=== PATIENT | male | born 1990 | race Caucasian/White ===

== ENCOUNTER 2021-04-06 22:14 | Emergency (ER) | payer BC, SELFPAY ==
[2021-04-06 22:14] VITALS: BP 116/88; PULSE 79; RESP 18; TEMP 36.1; O2SAT 98; BMI 32.5
--- NOTE | 2021-04-06 22:47 | EX.ED.UPPERE ---
HPI History of Present Illness Chief Complaint: Upper Extremity Injury Informant: patient Narrative Narrative: 30-year-old male presenting with a left index finger injury. He tells me that about 3 months ago he hit it on some machinery and developed a subungual hematoma. Today he noticed that the nail was starting to come up and he is worried about the pain that may come if he loses the nail. PFSH PFSH Medical History Smoker Home Medications NK 04/06/21 [History Last Taken Unknown] Allergy/AdvReac Type Severity Reaction Status Date / Time No Known Allergies Allergy Verified 04/06/21 22:21 Social History (Updated 04/06/21 @ 22:[address] Eleuterio Tiwari, DO) Smoking Status: Current some day smoker tobacco type: cigarettes substance use type: does not use ROS ROS ED Constitutional Constitutional ED: Denies chills, fever(s) or weight loss Eyes Eyes: Denies change in vision or diplopia ENT ENT ED: Denies ear pain, rhinorrhea or sore throat Cardiovascular Cardiovascular: Denies chest pain, orthopnea, palpitations or racing heartbeat Respiratory/Chest Respiratory/Chest: Denies cough, dyspnea or orthopnea Gastrointestinal Gastrointestinal: Denies abdominal pain, diarrhea, nausea or vomiting Genitourinary Genitourinary ED: Denies dysuria, hematuria or urinary frequency Musculoskeletal Musculoskeletal: Reports other Details: See history of present illness ; Denies arthralgias or myalgias Integumentary Denies abscess or rash Neurologic Neurologic: Denies headache(s) or weakness Psychiatric Psychiatric: Denies anxiety, depression, suicidal ideation or suicidal thoughts Endocrine Endocrinology: Denies polydipsia, polyphagia or polyuria Allergic/Immunologic Allergic/Immunologic ED: Denies mouth swelling, tongue swelling or urticaria EXAM Physical Exam Const Vital Signs: 04/06/21 22:14 Temperature 97 F L Temperature Source Temporal Pulse Rate 79 Respiratory Rate 18 Blood Pressure 116/88 H Blood Pressure Mean 97 Pulse Ox 98 Oxygen Delivery Method Room Air Positive well nourished and well developed General Appearance ED: well developed HEENT Reports normocephalic, head/scalp atraumatic and moist mucous membranes normocephalic and atraumatic Eyes PERRL and EOMs intact bilaterally Neck no lymphadenopathy, supple and no JVD Resp normal respiratory effort and clear to auscultation bilaterally Cardio regular rate, regular rhythm and no murmurs GI normal to inspection, nondistended, normoactive bowel sounds and non-tender Palpation: soft Back/Spine no CVA tenderness and normal ROM Extremity Extremity Narrative: The medial 50% of the left index finger's nail demonstrates an old subungual hematoma with the nail lifting up off the nail bed. In the center of the nail is a linear area of a subungual hematoma along a nail fracture line extending laterally. Above and below this line appears to have viable nail and nailbed. General Extremety ED: Negative for edema General Extremity: Negative for edema Neuro oriented x3 and CN's II-XII intact bilaterally Sensorium / Orientation: alert Motor Exam: strength 5/5 throughout Psych mental status grossly normal Mood & Affect: Negative for depressed or tearful Skin no rashes or lesions noted and no wounds MDM MDM MDM Narrative Medical decision making narrative: I was able to trim the nail that was lifted up without any difficulty or pain. The old blood was evacuated. Patient was notified that he may not have a nail grow back as the cuticle appears to be adhered to the nailbed. He will be discharged home Discharge Plan Triage Chief Complaint: Upper Extremity Injury ED Provider: Eleuterio Tiwari Dx/Rx/DC Orders Clinical Impression: Subungual hematoma of index finger Instructions: ED Subungual Hematoma Prescriptions: No Action NK RF: 0 Referrals: Mega Duarte MD [STAFF PHYSICIAN] - As Needed (If you need to see a hand surgeon) Disposition Disposition: Home, Self Care
[2021-04-06 23:05] VITALS: PULSE 72; RESP 15; O2SAT 98
== END 2021-04-06 23:06 | disposition home or self-care (01) ==
LOC: ED 22:57
PROVIDERS: Emergency Provider Emergency Medicine; Visit Provider Emergency Medicine
DX: S60.122A Contusion of left index finger with damage to nail, initial encounter (principal); W31.9XXA Contact with unspecified machinery, initial encounter; Y93.9 Activity, unspecified; Y92.9 Unspecified place or not applicable; F17.210 Nicotine dependence, cigarettes, uncomplicated
CPT/HCPCS: 99282

== ENCOUNTER 2022-01-25 23:41 | Emergency (ER) | payer BC, SELFPAY ==
[2022-01-25 23:42] VITALS: BP 146/104; PULSE 84; RESP 16; TEMP 37; O2SAT 100; BMI 32.0
--- NOTE | 2022-01-26 00:42 | EDS_ITS ---
HPI HPI - URI History of Present Illness Chief Complaint: Cold Sx Detail of Chief Complaint: Presents with clear rhinorrhea tonight. Informant: patient Onset/Context/Timing Onset: Today Context: Gradual Onset Timing: Intermittent Current Severity: Mild Maximum Severity: Mild Associated Symptoms Associated Symptoms: Positive for Nasal Congestion; Negative for Headache, Sinus Pressure, Myalgias, Nausea, Vomiting, Diarrhea, Shortness of Breath, Chest Pain, Nonproductive cough, Hemoptysis or Productive Cough Narrative Narrative: 31-year-old male no seen past medical history. States he had nasal congestion tonight with clear drainage. No pus. No fever. No headache. He has had similar symptoms throughout this year. Prior similar symptoms: Yes Recent Illness/Hospitalization: No ROS ROS ED ROS Narrative Clear rhinorrhea. Review of Systems ROS Unobtainable: Denies due to encephalopathy Constitutional Constitutional ED: Denies chills or fever(s) Eyes Eyes: Denies blurry vision ENT ENT ED: Reports rhinorrhea; Denies ear pain or sore throat Cardiovascular Cardiovascular: Denies chest pain or palpitations Respiratory/Chest Respiratory/Chest: Denies cough or dyspnea Gastrointestinal Gastrointestinal: Denies abdominal pain Genitourinary Genitourinary ED: Denies dysuria Musculoskeletal Musculoskeletal: Denies arthralgias Integumentary Denies abscess Neurologic Neurologic: Denies headache(s) Endocrine Endocrinology: Denies cold intolerance Hematologic/Lymphatic Hematologic/Lymphatic: Denies easy bleeding or easy bruising Allergic/Immunologic Allergic/Immunologic ED: Denies mouth swelling PFSH PFSH Medical History No acute medical problems Smoker Home Medications NK 04/06/21 [History Last Taken Unknown] Allergy/AdvReac Type Severity Reaction Status Date / Time No Known Allergies Allergy Verified 01/26/22 00:33 Social History Smoking Status: Current some day smoker tobacco type: cigarettes substance use type: does not use EXAM Physical Exam Narrative Exam Narrative: Well-appearing 31-year-old male. Vital signs stable afebrile. Pulse ox high percent on room air no signs hypoxia. H EENT exam unremarkable other than nasal congestion. Clear drainage. No pus. No sinus tenderness of the frontal or maxillary sinuses. Posterior pharynx normal. No pharyngitis. No exudate. Neck nontender no lymphadenopathy. Lungs clear. Heart regular rhythm no murm ur. Otherwise exam normal. Const Vital Signs: 01/25/22 23:42 01/26/22 00:32 Temperature 98.6 F Temperature Source Temporal Pulse Rate 84 Respiratory Rate 16 Respiratory Effort Normal Non-Labored Respiratory Pattern Normal Blood Pressure 146/104 H Blood Pressure Mean 118 Pulse Ox 100 Oxygen Delivery Method Room Air Positive well nourished and well developed; Negative for cachectic or contractures General Appearance ED: well developed and NAD; Negative for cachectic, contractures, cyanotic, diaphoretic or pallor Nutritional Appearance: Negative for cachectic HEENT Reports moist mucous membranes; Denies dry mucous membranes normocephalic and atraumatic Face and Sinus: Negative for sinus tenderness, maxillary instability or facial tenderness Mouth ED: No dry mucous membranes Mouth: No dry mucous membranes Teeth and Gingiva: Negative for caries Throat: posterior oropharynx normal; Negative for tonsils abnormal or posterior oropharynx abnormal Eyes PERRL and EOMs intact bilaterally General Eye ED: Negative for pale conjunctiva or scleral icterus Neck no lymphadenopathy, supple, no meningeal signs and no JVD General: Negative for anterior neck swelling or lymphadenopathy Resp normal respiratory effort and clear to auscultation bilaterally Effort and Inspection: Negative for retractions Auscultation: Negative for rales, rhonchi or wheezes Cardio S1 normal heart sound, S2 normal heart sound and no murmurs Rate: regular rate Rhythm: regular rhythm GI non-tender, non-distended and no masses Inspection: Negative for abdominal distention Auscultation: normoactive bowel sounds Palpation: soft; Negative for tender Back/Spine no CVA tenderness and normal ROM General Back: Negative for CVA tenderness Cervical Spine: Negative for cervical spine tenderness Thoracic Spine / Upper Back: Negative for thoracic spinal tenderness Lumbar Spine / Lower Back: Negative for lumbar spinal tenderness Sacrum: Negative for tenderness Extremity normal to inspection and full ROM General Extremety ED: Negative for cyanosis or tenderness General Extremity: Negative for cyanosis Neuro oriented x3, CN's II-XII intact bilaterally and no sensory deficits noted Sensorium / Orientation: alert, oriented to person, oriented to place and oriented to time; Negative for orientation impaired, lethargic or stuporous Sensory Exam: No sensory level loss detected Motor Exam: strength 5/5 throughout Psych mental status grossly normal Appearance: Negative for other Attitude: No agitated Mood & Affect: Negative for depressed, anxious or tearful Skin General Skin Exam: Negative for jaundice or pallor Lesions: no lesions Rashes: no rashes Trauma: Negative for abrasion MDM MDM MDM Narrative Medical decision making narrative: 31-year-old male with clear rhinorrhea. Most likely this is secondary to seasonal allergies could also be a viral syndrome. Clinically looks well. Lungs are clear. He needs no antibiotics. He recently came off a prescription of prednisone. He will be instructed to machine pecan picker [id number] nasal spray. Discharge Plan Triage Chief Complaint: Cold Sx ED Provider: Farhad Rodriguez Dx/Rx/DC Orders Clinical Impression: Acute rhinitis Instructions: Adult Self-Care for Colds Prescriptions: No Action NK Primary Care Provider: Care Physician,No Primary Referrals: Pedrito Marcum MD [Med Staff - Financial Retirement Plan Specialist] - As Needed Care Physician,No Primary [Primary Care Provider] - Activity Restrictions/Additional Instructions: You get [id number] nasal spray such as Afrin which will decrease the congestion and drainage. You can pick these up at almost any pharmacy or grocery store. Follow-up with your doctor as needed. Disposition Disposition: Home, Self Care
[2022-01-26 00:59] VITALS: PULSE 68; RESP 16; O2SAT 98
== END 2022-01-26 01:02 | disposition home or self-care (01) ==
PROVIDERS: Emergency Provider Emergency Medicine; Visit Provider Emergency Medicine
DX: J00 Acute nasopharyngitis [common cold] (principal); F17.210 Nicotine dependence, cigarettes, uncomplicated
CPT/HCPCS: 99282